=== PATIENT | female | born 1965 | race Hispanic/Latino ===

== ENCOUNTER 2025-02-27 09:59 | Outpatient (CLI) | payer OTHER ==
[2025-02-27 10:17] LABS: #Basophils 0.1 thou/uL (0.0-0.2); #Eosinophils 0.0 thou/uL (0.0-0.7); #Lymphocytes 2.0 thou/uL (1.20-3.40); #Monocytes 0.3 thou/uL (0.11-0.59); #Neutrophils 2.1 thou/uL (1.40-6.50); %Basophils 1.4 % (0.0-1.0); %Eosinophils 0.7 % (0.0-10.0); %Lymphocytes 43.5 % (21.0-51.0); %Monocytes 7.2 % (0.0-10.0); %Neutrophils 47.2 % (42.0-75.0); Hematocrit 46.1 % (36.0-47.0); Hemoglobin 15.4 g/dL (12.0-16.0); Mean Corpuscular Hemoglobin 31.2 pg (27.0-31.0); Mean Corpuscular Volume 93.5 fl (78.0-98.0); Platelet Count 227 10x3/uL (130-400); Red Blood Cell (RBC) Count 4.93 mill/uL (4.20-5.40); White Blood Cell (WBC) Count 4.5 10x3/uL (4.8-10.8)
[2025-02-27 10:32] LABS: ALT (SGPT) 15 U/L (Less than 34); AST (SGOT) 27 U/L (11-34); Albumin 4.5 g/dL (3.1-4.5); Alkaline Phosphatase 45 U/L (40-110); Anion Gap 17 mmol/L (10-20); BUN (Urea Nitrogen) 7 mg/dL (9.8-20.1); Bilirubin, Total 0.9 mg/dL (0.3-1.2); Calc. Creatinine Clearance 0 mL/min (70-130); Calcium 9.6 mg/dL (7.8-10.44); Carbon Dioxide 27 mmol/L (23-31); Chloride 101 mmol/L (98-107); Globulin 2.8 g/dL (2.4-3.5); Glucose 93 mg/dL (80-115); Potassium 3.7 mmol/L (3.5-5.1); Sodium 141 mmol/L (136-145)
[2025-02-27 10:37] LABS: Glucose, Urine (Dipstick) Negative (Negative); Leukocyte Small (Negative); Protein, Urine (Dipstick) Negative (Neg-Trace); Specific Gravity, Urine 1.015 (1.005-1.030)
[2025-02-27 10:52] LABS: RBC/HPF 0-3 HPF (0-3)
[2025-02-27 10:54] LABS: Bacteria/HPF Rare-Few HPF (None Seen)
== END 2025-02-27 10:00 | disposition home or self-care (01) ==
LOC: MADLAB 09:59
PROVIDERS: ATTEND Internal Medicine
DX: I10 Essential (primary) hypertension (principal); R39.9 Unspecified symptoms and signs involving the genitourinary system; R73.9 Hyperglycemia, unspecified; Z79.899 Other long term (current) drug therapy
CPT/HCPCS: 36415; 80053; 81001; 83036; 85025